=== PATIENT | female | born 1935 | race Caucasian/White ===

== ENCOUNTER 2022-02-18 20:42 | Emergency (ER) | payer MEDICARE, OTHER ==
[~2022-02-18] VITALS: Ht 172.7 cm; Wt 83.9 kg
[~2022-02-18 20:42] MED LIST: AMBIEN PO
--- NOTE | 2022-02-18 21:09 | NUR ---
pt roomed, report given to Jose Francisco OLIVO.
[2022-02-18] MEDS ORDERED: LOSA25TA3 PO (21:36)
[2022-02-18 22:17] LABS: CARBON DIOXIDE 30 mmol/L (21-32); CHLORIDE 102 mmol/L (98-107); GLUCOSE 113 mg/dL (74-106); POTASSIUM 4.6 mmol/L (3.5-5.1); UREA NITROGEN, BLOOD 16 mg/dL (7-18)
[2022-02-18 22:35] LABS: HEMATOCRIT 37.3 % (31.2-41.9); MEAN CORPUSCULAR HEMOGLOBIN 29.9 uug (24.7-32.8); MEAN CORPUSCULAR VOLUME 89.3 fL (75.5-95.3); PLATELET COUNT (AUTO) 241 K/uL (179-408)
--- NOTE | 2022-02-18 23:11 | NUR ---
patient eloped without signing AMA. aware.
== END 2022-02-18 23:10 | disposition left against medical advice (07) ==
LOC: ER 20:47
DX: R51.9 Headache, unspecified (principal); R42 Dizziness and giddiness; I10 Essential (primary) hypertension
CPT/HCPCS: 36415; 85025; 93005; A4663